=== PATIENT | female | born 1965 | race Caucasian/White ===

== ENCOUNTER 2017-12-31 05:02 | Emergency (ER) | payer OTHER ==
[~2017-12-31] VITALS: Ht 157.5 cm; Wt 115.7 kg
[2017-12-31 05:08] VITALS: BP 149/115
== END 2017-12-31 06:12 | disposition left against medical advice (07) ==
LOC: ED 05:02
DX: Z53.21 Procedure and treatment not carried out due to patient leaving prior to being seen by health care provider (principal)